=== PATIENT | male | born 1975 | race Caucasian/White ===

== ENCOUNTER 2021-09-29 09:49 | Emergency (ER) | payer SELFPAY ==
--- NOTE | ~2021-09-29 | CT_ITS ---
EXAMINATION: CT BRAIN W/O DATE: 09/29/2021 11:28 INDICATION: Dizziness. Headache. TECHNIQUE: Computed tomography (CT) of the head was performed without intravenous contrast. The dose- length product was 605.33 mGy-cm. Automated exposure control and iterative reconstruction technique w ere employed. COMPARISON: No prior studies for comparison. FINDINGS: Normal brain parenchymal volume for age. Normal de la rosa-white differentiation. No acute intrac ranial hemorrhage, infarction, mass or mass effect. No ventriculomegaly or midline shift. Midline sagittal images demonstrate a normal corpus callosum, c raniovertebral junction and sella turcica. Basilar cisterns are patent. Paranasal sinuses and mastoids are pneumatized. No depressed skull fractures. IMPRESSION: 1. No acute intracranial abnormality. Reviewed, dictated and finalized at location A.
[2021-09-29 10:11] VITALS: BP 146/90; PULSE 99; RESP 16; TEMP 37.4; O2SAT 99
[2021-09-29 10:15] LABS: Glucose Point of Care 76 mg/dl (65-105)
--- NOTE | 2021-09-29 10:15 | PC.NURSE ---
ERP at bedside for initial assessment.
--- NOTE | 2021-09-29 10:26 | ECG_ITS ---
Measurements Intervals [place] Rate: 95 P: 30 HI: 149 QRS: 46 QRSD: 86 T: 44 QT: 345 QTc: 434 Interpretive Statements SINUS RHYTHM MINIMAL Q WAVES- INFERIOR LEADS BORDERLINE ECG Electronically Signed On 09-29-2021 12:00:23 CDT by Rober Churchill D.O.
--- NOTE | 2021-09-29 10:30 | ED.HA ---
HPI - Headache General Chief Complaint: Headache Stated Complaint: pounding sensation in head Time Seen by Provider: 09/29/21 09:52 Source: patient and RN notes reviewed Mode of arrival: ambulatory Limitations: no limitations History of Present Illness MD elicited complaint: other (funny sensation forehead. pt denied CRUZ or marked dizziness) Onset (ago): hour(s) (4) Onset description: suddenly and while at rest Location: frontal Severity: mild Pain scale (0-10): 0 Exacerbating factors: none Relieving factors: nothing Context: occurred at rest Associated symptoms: none Treatments prior to arrival: none Related Data Home Medications Medication Instructions Recorded Confirmed No Home Medications 09/29/21 09/29/21 Allergies Allergy/AdvReac Type Severity Reaction Status Date / Time No Known Allergies Allergy Verified 09/29/21 10:16 Review of Systems Review of Systems: All systems reviewed & are unremarkable except as noted in HPI and below PMFSH Past Medical History Medical History Dizziness of unknown cause Exam Const: General: no acute distress and alert Nutritional Appearance: well nourished Orientation/consciousness: patient oriented x3 Limitations: no limitations HENMT: Head: normal to inspection Ears: external ears normal, TM's normal bilaterally and EAC's normal General nose exam: Normal external nose present and Normal nares present Face and sinus: normal facial exam and sinuses nontender Mouth: Yes Normal oral and palatal mucosa present Eyes: Conjunctivae: conjunctivae normal Pupils: Equal, round and reactive pupils present EOM: EOMs intact bilaterally Neck: Neck: normal visual inspection and no lymphadenopathy Chest: Chest palpation & inspection: normal inspection of the chest Resp: Effort & Inspection: normal respiratory effort Auscultation: clear to auscultation bilaterally Cardio: Rate: regular rate Rhythm: regular rhythm GI: GI Palp: Yes Soft to palpation and No Tenderness to palpation present (GI) Auscultation: normal bowel sounds : General: Yes bladder normal to palpation and Yes no CVA tenderness Male General Exam: Yes normal external exam Back/Spine/Pelvis: Back: no CVA tenderness Skin: General skin exam: normal color Rashes: no rashes Neuro: General: patient oriented x3, moves all extremities, no meningeal signs, no focal motor deficits and CN's II-XI intact bilaterally Cranial nerves: Yes Nystagmus not present Extrem: General: normal to inspection and no pedal edema Psych: Appearance: grossly normal and well kempt Mental Status: mental status grossly normal Affect: normal affect Attitude: cooperative Thought content: Yes Normal thought content present Course Course Emergency Course: Pt was stable in the ED. normal ambulation. no acute pain Reevaluation(s) Reevaluation #1: VSS Date: 09/29/21 Time: 10:45 Vital Signs Vital signs: Vital Signs Temperature 37.4 C 09/29/21 10:11 Pulse Rate 99 09/29/21 10:11 Respiratory Rate 16 09/29/21 10:11 Blood Pressure 146/90 H 09/29/21 10:11 Pulse Oximetry 99 09/29/21 10:11 Temperature 37.4 C 09/29/21 10:11 Pulse Rate 99 09/29/21 10:11 Respiratory Rate 16 09/29/21 10:11 Blood Pressure 146/90 H 09/29/21 10:11 Pulse Oximetry 99 09/29/21 10:11 MDM - Headache Differential Diagnosis Differential diagnosis: Likely migraine, tension headache, headache and sinusitis Medical Records Attestation: I reviewed the patient's medical records. Lab Data Attestation: I reviewed the patient's lab results. Result diagrams: 09/29/21 10:44 09/29/21 10:44 Labs: Lab Results 09/29/21 09/29/21 09/29/21 Range/Units 10:13 10:44 10:44 WBC 6.4 (4.8-10.8) K/mm3 RBC 4.98 (4.70-6.10) M/mm3 Hgb 15.0 (14.0-18.0) g/dL Hct 44.8 (40.0-54.0) % MCV 90.0 (78.0-102.0) fL MCH 30.1 (27.0-31.0) pg
[2021-09-29] MEDS: SODIUM CHLORIDE 0.9% IV 1,000 ML 999 ML IV CONT (10:36)
[2021-09-29] MEDS: ACETAMINOPHEN 325 MG TABLET 650 MG PO (10:38)
[2021-09-29 10:49] LABS: Basophils Absolute Auto 0.05 K/mm3 (0.00-0.10); Basophils Percent Auto 0.8 % (0.0-1.0); Eosinophils Absolute Auto 0.03 K/mm3 (0.02-0.50); Eosinophils Percent Auto 0.5 % (1.0-6.0); Hematocrit 44.8 % (40.0-54.0); Immature Granulocyte Absolute 0.05 K/mm3 (0.00-0.00); Immature Granulocyte Percent A 0.8 % (0.0-0.0); Lymphocytes Absolute Auto 0.35 K/mm3 (1.10-4.50); Lymphocytes Percent Auto 5.4 % (18.0-42.0); Mean Corpuscular HGB Conc 33.5 g/dL (32.0-36.0); Mean Corpuscular Hemoglobin 30.1 pg (27.0-31.0); Mean Platelet Volume 10.6 fl (8.7-11.0); Monocytes Absolute Auto 0.53 K/mm3 (0.10-0.90); Monocytes Percent Auto 8.2 % (2.0-11.0); Neutrophils Absolute Auto 5.4 K/mm3 (1.7-7.2); Neutrophils Percent Auto 84.3 % (50.0-70.0); Platelet Count Result 168 K/mm3 (150-420); Red Blood Count 4.98 M/mm3 (4.70-6.10); Red Cell Distribution Width 12.7 % (11.6-14.4); White Blood Count 6.4 K/mm3 (4.8-10.8)
[2021-09-29 11:10] LABS: Alanine Aminotransferase 24 U/L (16-63); Albumin Level 3.3 g/dL (3.4-5.0); Alkaline Phosphatase 116 U/L (46-116); Anion Gap 4 mmol/L (8-16); Aspartate Amino Transferase 14 U/L (15-37); Bilirubin,Total 0.2 mg/dL (0.00-1.00); Blood Urea Nitrogen 10 mg/dL (7-18); Calcium 8.3 mg/dL (8.5-10.1); Carbon Dioxide 28 mmol/L (21-32); Chloride 101 mmol/L (98-108); Estimated Glomerular Filt Rate > 60; Glucose 93 mg/dL (70-99); Osmolality Calculated 275 mOsm/kg (285-295); Potassium 3.8 mmol/L (3.5-5.1); Sodium 133 mmol/L (136-145); Total Protein 6.6 g/dL (6.4-8.2); Troponin I 4.6 ng/L (0.00-60.4)
[2021-09-29 11:12] LABS: Ethanol < 3 mg/dL (0-6)
[2021-09-29 11:13] LABS: Lactic Acid Reflex 1.2 mmol/L (0.4-2.0)
--- NOTE | 2021-09-29 11:21 | PC.NURSE ---
patient in ct.
[2021-09-29 11:29] LABS: SARS-CoV-2 RNA PCR Positive (Negative)
[2021-09-29 11:30] LABS: Influenza A QL RT-PCR Negative (Negative); Influenza B QL RT-PCR Negative (Negative)
[2021-09-29 11:36] LABS: Add Urine Microscopic? NO; Appearance Urine Clear (Clear); Bilirubin Urine Negative (Negative); Blood Urine Negative (Negative); Color Urine Light Yellow (Yellow); Glucose Urine UA Negative (Negative); Ketones Urine Negative (Negative); Leukocyte Esterase Ur Negative (Negative); Nitrate Urine Negative (Negative); Protein Urine Negative (Negative); Urobilinogen Urine 0.2 mg/dL (0.2-1.0); pH Urine 7.5 (5.0-8.0)
[2021-09-29 11:43] LABS: Amphetamine Screen Urine Negative (Negative); Barbiturate Screen Urine Negative (Negative); Benzodiazepines Screen Urine Negative (Negative); Cannabinoid Screen Urine Positive (Negative); Cocaine Screen Urine Negative (Negative); Methadone Screen Urine Negative (Negative); Opiate Screen Urine Negative (Negative); Phencyclidine Screen Urine Negative (Negative)
[2021-09-29 12:06] VITALS: BP 137/85; PULSE 86; RESP 16; TEMP 36.9; O2SAT 97
== END 2021-09-29 12:08 | disposition home or self-care (01) ==
PROVIDERS: Emergency Provider Emergency Medicine
DX: U07.1 COVID-19 (principal)
CPT/HCPCS: 36415; 70450; 80053; 80307; 81003; 82948; 83605; 84484; 85025; 87502; 93005; 96360; 99284; A9270; C9803; J7030; U0003; U0005